=== PATIENT | male | born 1975 | race Caucasian/White ===

== ENCOUNTER 2016-06-10 15:26 | Emergency (ER) | payer OTHER ==
[~2016-06-10] VITALS: Ht 190.5 cm; Wt 77.1 kg
[2016-06-10 15:29] VITALS: BP 141/99
[2016-06-10] MEDS ORDERED: HYDROCODONE/APAP 10/325MG 1 EA TABLET ONE (15:42)
[2016-06-10] MEDS ORDERED: HYDROCODONE/APAP 10/325MG 1 EA TABLET PO ONE (16:00)
== END 2016-06-10 16:21 | disposition home or self-care (01) ==
LOC: ER 15:30
DX: S63.501A Unspecified sprain of right wrist, initial encounter (principal); J45.909 Unspecified asthma, uncomplicated; K51.90 Ulcerative colitis, unspecified, without complications; X50.0XXA Overexertion from strenuous movement or load, initial encounter; Y93.89 Activity, other specified; Y92.89 Other specified places as the place of occurrence of the external cause; Y99.8 Other external cause status
CPT/HCPCS: 29125; 73110; 99284; A4606; Z7610

== ENCOUNTER 2018-04-30 10:40 | Emergency (ER) | payer SELFPAY ==
[~2018-04-30] VITALS: Ht 188 cm; Wt 77.1 kg
[2018-04-30 10:40] VITALS: BP 121/78
[2018-04-30] MEDS ORDERED: oxyCODONE/APAP (5/325 MG) 1 UDTAB TABLET ONE (11:24)
[2018-04-30] MEDS ORDERED: KETOROLAC TROMETHAMINE INJ 30 MG/ML VIAL ONE (11:24)
[2018-04-30] MEDS ORDERED: ONDANSETRON 4 MG TAB.RAPDIS ONE (11:25)
[2018-04-30] MEDS ORDERED: oxyCODONE/APAP (5/325 MG) 1 UDTAB TABLET PO ONE (11:30)
[2018-04-30] MEDS ORDERED: ONDANSETRON 4 MG TAB.RAPDIS SL ONE (11:30)
[2018-04-30] MEDS ORDERED: KETOROLAC TROMETHAMINE INJ 60 MG/2 ML VIAL IM ONE (11:30)
== END 2018-04-30 11:52 | disposition home or self-care (01) ==
LOC: ER 10:44
DX: S39.012A Strain of muscle, fascia and tendon of lower back, initial encounter (principal); F12.90 Cannabis use, unspecified, uncomplicated; J45.909 Unspecified asthma, uncomplicated; Z87.19 Personal history of other diseases of the digestive system; X50.0XXA Overexertion from strenuous movement or load, initial encounter; Y93.89 Activity, other specified; Y92.89 Other specified places as the place of occurrence of the external cause; Y99.8 Other external cause status
CPT/HCPCS: 96372; 99283; A4606; J1885; Q0162